=== PATIENT | male | born 1985 | race Caucasian/White ===

== ENCOUNTER 2021-11-13 15:13 | Emergency (ER) | payer MEDICAID ==
[~2021-11-13] VITALS: Ht 180.3 cm; Wt 92.5 kg
[2021-11-13 15:15] VITALS: BP 118/55
--- NOTE | 2021-11-13 15:26 | NUR ---
VA: RIGHT EYE 20/70, LEFT EYE 20/50, BOTH EYES 20/40
--- NOTE | 2021-11-13 15:28 | NUR ---
PT AMB TO BED 8.
--- NOTE | 2021-11-13 15:35 | NUR ---
36 Y/O MALE BIB SELF FOR CABALLERO/EAR PAIN X2 MOS. PT DENIES COUGH/ FEVER/ SORE THROAT. PT SMOKES MARIJUANA/METH. LAST TIME HE SMOKED METH WAS 3 WKS AGO. PT STATES HE SEES "WHITE SPOTS". HE IS ABLE TO SPEAK IN COMPLETE SENTENCES. PT DENIES SOB. PT IS ALERT AND ORIENTED X4. BED IN LOWEST POSITION. MONITOR IN PLACE. SpO2 99% ROOM AIR. SIDE RAIL X1. VA: RIGHT EYE 20/70, LEFT EYE 20/50, BOTH EYES 20/40
[2021-11-13] MEDS ORDERED: LORazepam 1 MG TAB PO ONE (16:00)
[2021-11-13] MEDS ORDERED: ATA25 PO (17:15)
[2021-11-13 17:28] VITALS: BP 118/55
[2021-11-13 17:40] LABS: BARBITURATE, URINE NEGATIVE ng/ml (NEG <=200); BENZODIAZEPINE, URINE POSITIVE ng/mL (NEG <=200); CANNABINOID, URINE POSITIVE ng/mL (NEG <=50); COCAINE, URINE NEGATIVE ng/mL (NEG <=300); OPIATE, URINE NEGATIVE ng/mL (NEG <=2000); PHENCYCLIDINE SCREEN,URINE NEGATIVE ng/mL (NEG <=25)
== END 2021-11-13 17:28 | disposition home or self-care (01) ==
LOC: MED 15:13
DX: F41.9 Anxiety disorder, unspecified (principal); R00.0 Tachycardia, unspecified; R42 Dizziness and giddiness; H92.09 Otalgia, unspecified ear; R41.0 Disorientation, unspecified; Z79.899 Other long term (current) drug therapy
CPT/HCPCS: 80305; 81002; 93005; 99284